=== PATIENT | female | born 1955 | race Two or more races ===

== ENCOUNTER 2017-05-08 20:39 | Inpatient (IN) | payer SELFPAY ==
[~2017-05-08] VITALS: Ht 43.2 cm; Wt 48.5 kg
[~2017-05-08 20:39] MED LIST: CIPRO500 MG PO; NKM; NORCO 5-325 TA1 EACH ORAL; PHENAZOPYRIDIN100 MG PO
--- NOTE | 2017-05-08 20:47 | Emergency Room Report ---
History of Present Illness General Chief Complaint: Vomiting Source: Patient Present Illness HPI Patient is a 61-year-old female who presented after increased of vomiting as well as bilateral hand numbness. Patient had prior history of a gallbladder disease. Patient had previous cholecystectomy. Patient stated that she really becomes constipated and used an enema. Patient reported having some increased abdominal pain as well as vomiting times one. There is no evidence of hematemesis. Patient denied any recent fever. She denies severe pain.The patient stated that her hands a become somewhat numb bilaterally. She reported having some generalized weakness. Allergies: Coded Allergies: No Known Allergies (Unverified , 07/13/12) Patient History Past Medical History: none Past Surgical History: deepti Last Menstrual Period: 2004 Now: No : 2 Para: 2 Reviewed Nursing Documentation: PMH: Agreed, PSxH: Agreed Nursing Documentation-PMH Past Medical History: No Stated History Review of Systems All Other Systems: negative except mentioned in HPI Physical Exam Vital Signs Date Time Temp Pulse Resp B/P Pulse Ox O2 Delivery O2 Flow Rate FiO2 05/08/17 20:33 98.4 94 16 159/79 100 Room Air Sp02 EP Interpretation: reviewed, normal General Appearance: normal inspection, alert, GCS 15, mild distress Head: atraumatic ENT: normal ENT inspection, hearing grossly normal, normal voice Neck: normal inspection, full range of motion, supple, no bony tend Respiratory: normal inspection, lungs clear, normal breath sounds, no respiratory distress, no retraction, no wheezing Cardiovascular #1: regular rate, rhythm, no edema Gastrointestinal: normal inspection, normal bowel sounds, non tender, soft, no guarding, no hernia Genitourinary: no CVA tenderness Musculoskeletal: normal inspection, back normal, normal range of motion Neurologic: normal inspection, alert, oriented x3, responsive, nps III-XII nml as tested, speech normal Psychiatric: normal inspection, judgement/insight normal, mood/affect normal Skin: normal inspection, normal color, no rash Medical Decision Making Diagnostic Impression: Primary Impression: Vomiting Additional Impressions: Hyponatremia Dehydration ER Course Patient presented for abdominal pain. Differential diagnoses included ischemic bowel, appendicitis, perforated viscus, abdominal aortic aneurysm, inferior myocardial infarction, viral gastroenteritis. Because of complexity of patient' s case laboratory testing and imaging studies were ordered.Laboratory testing showed hyponatremia with sodium 124. Patient was given IV fluids with normal saline. A TSH was normal urine sodium is currently pending. The patient's BUN creatinine was normal. Dr. Herrera was contacted for Dr. Forman for panel admission due to severe hyponatremia. EKG interpreted by me showed normal sinus rhythm and nonspecific T wave changes with a rate of 64 EKG Diagnostic Results Rate: normal Rhythm: NSR - 64 ST Segments: no acute changes ASA given to the pt in ED: No Rhythm Strip Diag. Results EP Interpretation: yes Rhythm: NSR, no PVC's, no ectopy Last Vital Signs Date Time Temp Pulse Resp B/P Pulse Ox O2 Delivery O2 Flow Rate FiO2 05/08/17 20:33 98.4 94 16 159/79 100 Room Air Status: unchanged Disposition: ADMITTED INPATIENT Condition: Serious Wing Cooper May 08, 2017 20:47
[2017-05-08 21:43] LABS: EOSINOPHILS % (AUTO) 0.6 % (0.0-3.0); LYMPHOCYTES % (AUTO) 44.3 % (20.0-45.0); MEAN CORPUSCULAR HEMOGLOBIN 33.6 PG (27.0-31.0); MEAN CORPUSCULAR HGB CONC 36.8 G/DL (32.0-36.0); MEAN CORPUSCULAR VOLUME 91 FL (80-99); MEAN PLATELET VOLUME 7.3 FL (6.5-10.1); MONOCYTES % (AUTO) 9.1 % (1.0-10.0); PLATELET COUNT 239 K/UL (150-450); RED BLOOD COUNT 3.62 M/UL (4.20-5.40); RED CELL DISTRIBUTION WIDTH 10.1 % (11.6-14.8); WHITE BLOOD COUNT 6.6 K/UL (4.8-10.8)
[2017-05-08 21:53] VITALS: BP 129/63
[2017-05-08 22:08] LABS: TROPONIN I < 0.30 ng/mL (<=0.30)
[2017-05-08 22:11] LABS: ALANINE AMINOTRANSFERASE 10 U/L (3-33); ALBUMIN/GLOBULIN RATIO 1.2 (1.0-2.7); ANION GAP 15 (5-15); ASPARTATE AMINO TRANSFERASE 21 U/L (5-40); CALCIUM 9.4 mg/dL (8.6-10.2); CARBON DIOXIDE 25 mEQ/L (20-30); CHLORIDE 84 mEQ/L (98-107); CREATININE 0.7 mg/dL (0.5-0.9); GLOMERULAR FILTRATION RATE > 60 mL/min (>60); HEMOLYSIS 6; LIPASE 25 U/L (< 60); POTASSIUM 3.5 mEQ/L (3.4-4.9); SODIUM 124 mEQ/L (135-145); TOTAL PROTEIN 7.6 g/dL (6.6-8.7)
[2017-05-08 22:18] LABS: APPEARANCE,URINE CLEAR; KETONES,URINE NEGATIVE (NEGATIVE); LEUKOCYTE ESTERASE ,URINE NEGATIVE (NEGATIVE); NITRITE,URINE NEGATIVE (NEGATIVE); PH,URINE 7 (4.5-8.0); PROTEIN,URINE NEGATIVE (NEGATIVE); UROBILINOGEN,URINE NORMAL MG/DL (0.0-1.0)
[2017-05-08] MEDS ORDERED: NKM (22:39)
[2017-05-09] VITALS (7 sets, daily range): BP systolic 95–127; BP diastolic 51–67
[2017-05-09] MEDS ORDERED: Zolpidem 5mg tab ORAL PRN (02:30)
[2017-05-09] MEDS ORDERED: Miralax 17gm pkt ORAL PRN (02:30)
[2017-05-09] MEDS ORDERED: Morphine Sulfate 4mg/ml Inj IVP PRN (02:30)
[2017-05-09] MEDS ORDERED: Milk of Magnesia 30ml Ud ORAL PRN (02:30)
[2017-05-09] MEDS ORDERED: Morphine Sulfate 2mg/ml Inj IVP PRN (02:30)
[2017-05-09] MEDS ORDERED: Mylanta II UD 30ml ORAL PRN (02:30)
[2017-05-09] MEDS ORDERED: Nitroglycerin Subl 0.4mg tab (Bottle Of 25) SL PRN (02:30)
--- NOTE | 2017-05-09 07:50 | History and Physical ---
History of Present Illness General Date patient seen: May 09, 2017 Time patient seen: 07:50 Reason for Hospitalization: Abd pain, nausea/vomiting Present Illness HPI 61-year-old female who presented after increased of vomiting as well as bilateral hand numbness. Patient had prior history of a gallbladder disease. Patient had previous cholecystectomy. Patient stated that she really becomes constipated and used an enema. Patient reported having some increased abdominal pain as well as vomiting times one. There is no evidence of hematemesis. Patient denied any recent fever. She denies severe pain.The patient stated that her hands a become somewhat numb bilaterally. She reported having some generalized weakness Allergies: Coded Allergies: No Known Allergies (Unverified , 07/13/12) Medication History Scheduled No Known Medications* (NKM - No Known Medications*), 0 ., (Reported) No Known Medications* (NKM - No Known Medications*), 0 ., (Reported) Patient History Healthcare decision maker Resuscitation status Full Code Advanced Directive on File No Past Medical/Surgical History Past Medical/Surgical History: (1) S/P cholecystectomy Family History Family History: Patient reports no known family medical history. Social History Social History: (1) Lives with family Review of Systems Constitutional: Reports: no symptoms Eye: Reports: no symptoms ENT: Reports: no symptoms Respiratory: Reports: no symptoms Cardiovascular: Reports: no symptoms Gastrointestinal: Reports: abdominal pain, diarrhea, nausea, vomiting Genitourinary: Reports: no symptoms Musculoskeletal: Reports: no symptoms Skin: Reports: no symptoms Psychiatric: Reports: no symptoms Neurological: Reports: numbness Endocrine: Reports: no symptoms Hematologic/Lymphatic: Reports: no symptoms All Other Systems: negative except mentioned in HPI Physical Exam Physical Exam Narrative General: alert, cooperative, no distress, appears stated age Head: normocephalic, without obvious abnormality, atraumatic Eyes: conjunctivae/corneas clear. PERRL, EOM's intact Throat: lips, mucosa, and tongue normal. MMM Neck: supple, symmetrical, trachea midline, and no JVD Lungs: clear to auscultation bilaterally Heart: regular rate and rhythm, S1, S2 normal, no murmur, click, rub or gallop Abdomen: soft, non-tender, non-distended, bowel sounds normal; no masses or organomegaly Extremities: extremities normal, atraumatic, no cyanosis or edema Pulses: 2+ and symmetric Skin: skin color, texture, turgor normal; no rashes or lesions Neurologic: grossly normal, no focal deficits Last 24 Hour Vital Signs Date Time Temp Pulse Resp B/P Pulse Ox O2 Delivery O2 Flow Rate FiO2 05/09/17 05:34 98.9 05/09/17 04:00 48 05/09/17 04:00 97.0 64 20 100/60 100 Room Air 05/09/17 00:52 53 16 99/48 98 Room Air 05/09/17 00:26 98.9 57 16 104/51 98 Room Air 05/09/17 00:00 97.0 55 20 127/67 90 Room Air 05/09/17 00:00 97.0 55 20 90 Room Air 05/08/17 21:53 58 17 129/63 99 Room Air 05/08/17 20:33 98.4 94 16 159/79 100 Room Air Intake and Output 05/08/17 05/09/17 18:59 06:59 Intake Total 250 ml Output Total 100 ml Balance 150 ml Intake IV Total 250 ml Output Emesis 100 ml # Voids 3 Laboratory Tests Test 05/08/17 21:20 05/08/17 22:10 White Blood Count 6.6 K/UL (4.8-10.8) Red Blood Count 3.62 M/UL (4.20-5.40) L Hemoglobin 12.2 G/DL (12.0-16.0) Hematocrit 33.1 % (37.0-47.0) L Mean Corpuscular Volume 91 FL (80-99) Mean Corpuscular Hemoglobin 33.6 PG (27.0-31.0) H Mean Corpuscular Hemoglobin Concent 36.8 G/DL (32.0-36.0) H Red Cell Distribution Width 10.1 % (11.6-14.8) L Platelet Count 239 K/UL (150-450) Mean Platelet Volume 7.3 FL (6.5-10.1) Neutrophils (%) (Auto) 45.0 % (45.0-75.0) Lymphocytes (%) (Auto) 44.3 % (20.0-45.0) Monocytes (%) (Auto) 9.1 % (1.0-10.0) Eosinophils (%) (Auto) 0.6 % (0.0-3.0) Basophils (%) (Auto) 1.0 % (0.0-2.0) Sodium Level 124 mEQ/L (135-145) L Potassium Level 3.5 mEQ/L (3.4-4.9) Chloride Level 84 mEQ/L (98-107) L Carbon Dioxide Level 25 mEQ/L (20-30) Anion Gap 15 (5-15) Blood Urea Nitrogen 7 mg/dL (7-23) Creatinine 0.7 mg/dL (0.5-0.9) Estimat Glomerular Filtration Rate > 60 mL/min (>60) Glucose Level 101 mg/dL (74-106) Calcium Level 9.4 mg/dL (8.6-10.2) Total Bilirubin 0.8 mg/dL (0.0-1.2) Aspartate Amino Transf (AST/SGOT) 21 U/L (5-40) Alanine Aminotransferase (ALT/SGPT) 10 U/L (3-33) Alkaline Phosphatase 71 U/L (35-104) Troponin I < 0.30 ng/mL (<=0.30) Total Protein 7.6 g/dL (6.6-8.7) Albumin 4.2 g/dL (3.5-5.2) Globulin 3.4 g/dL Albumin/Globulin Ratio 1.2 (1.0-2.7) Lipase 25 U/L (< 60) Urine Color Pale yellow Urine Appearance Clear Urine pH 7 (4.5-8.0) Urine Specific [place] 1.005 (1.005-1.035) Urine Protein Negative (NEGATIVE) Urine Glucose (UA) Negative (NEGATIVE) Urine Ketones Negative (NEGATIVE) Urine Occult Blood Negative (NEGATIVE) Urine Nitrite Negative (NEGATIVE) Urine Bilirubin Negative (NEGATIVE) Urine Urobilinogen Normal MG/DL (0.0-1.0) Urine Leukocyte Esterase Negative (NEGATIVE) Urine Random Sodium 34 mmol/L Thyroid Stimulating Hormone (TSH) 3.110 uIU/mL (0.300-4.500) Height (Feet): 1 Height (Inches): 5.00 Weight (Pounds): 107 Medications Current Medications Medications (Trade) Dose Ordered Sig/Estrella Route PRN Reason Start Time Stop Time Status Last Admin Dose Admin Acetaminophen (Tylenol) 650 mg Q4H PRN ORAL Mild Pain (Pain Scale 1-3) 05/09/17 02:30 9/2/17 02:29 Al Hydroxide/Mg Hydroxide (Mylanta II) 30 ml Q6H PRN ORAL dyspepsia 05/09/17 02:30 06/08/17 02:29 Bisacodyl (Dulcolax) 10 mg HSPRN PRN RECTAL Constipation 05/09/17 02:30 06/08/17 02:29 Dextrose STAT PRN IV Hypoglycemia 05/09/17 02:30 06/08/17 02:29 Diphenhydramine HCl (Benadryl) 25 mg Q6H PRN ORAL Itching/Pruritis 05/09/17 02:30 06/08/17 02:29 Docusate Sodium (Colace) 100 mg EVERY 12 HOURS ORAL 05/09/17 09:00 06/08/17 08:59 Heparin Sodium (Porcine) (Heparin 5000 units/ml) 5,000 units EVERY 8 HOURS SUBQ 05/09/17 06:00 06/08/17 05:59 Magnesium Hydroxide (Mom) 30 ml HSPRN PRN ORAL Constipation 05/09/17 02:30 06/08/17 02:29 Morphine Sulfate (Morphine Sulfate) 2 mg Q4H PRN IVP Moderate Pain (Pain Scale 4-6) 05/09/17 02:30 05/16/17 02:29 Morphine Sulfate (Morphine Sulfate) 4 mg Q4H PRN IVP Severe Pain (Pain Scale 7-10) 05/09/17 02:30 05/16/17 02:29 Nitroglycerin (Ntg) 0.4 mg Q5M X 3 DOSES PRN SL Prn Chest Pain 05/09/17 02:30 06/08/17 02:29 Ondansetron HCl (Zofran) 4 mg Q6H PRN IVP Nausea & Vomiting 05/09/17 02:30 06/08/17 02:29 Polyethylene Glycol (Miralax) 17 gm HSPRN PRN ORAL Constipation 05/09/17 02:30 06/08/17 02:29 Sodium Chloride (Sodium Chloride 1000ml bag) 1,000 ml @ 75 mls/hr [id number] IV 05/09/17 03:00 06/08/17 02:59 05/09/17 03:12 Zolpidem Tartrate (Ambien) 5 mg HSPRN PRN ORAL Insomnia 05/09/17 02:30 06/08/17 02:29 Assessment/Plan Problem List: (1) Abdominal pain ICD Codes: R10.9 - Unspecified abdominal pain SNOMED: 84283941 (2) Vomiting ICD Codes: R11.10 - Vomiting, unspecified SNOMED: 581866021 (3) Dehydration ICD Codes: E86.0 - Dehydration SNOMED: 51123574 (4) Hyponatremia ICD Codes: E87.1 - Hypo-osmolality and hyponatremia SNOMED: 17787322 (5) Paresthesia ICD Codes: R20.2 - Paresthesia of skin SNOMED: 02702374 Status: stable Assessment/Plan Admit inpt GI consulted IVFs w/ NS at 75mL/h given hyponatremia Replete lytes Consider further imaging per GI Regular diet as tolerate Nausea control Pain control Supportive care Jonathan Hedrick M.D. May 09, 2017 07:50
[2017-05-09] MEDS: Heparin 5000 units/ml inj SUBQ SCH ×4 (08:33→21:22)
[2017-05-09 08:52] LABS: BASOPHILS % (AUTO) 0.8 % (0.0-2.0); EOSINOPHILS % (AUTO) 0.6 % (0.0-3.0); LYMPHOCYTES % (AUTO) 42.8 % (20.0-45.0); MEAN CORPUSCULAR HGB CONC 34.8 G/DL (32.0-36.0); MEAN CORPUSCULAR VOLUME 95 FL (80-99); MEAN PLATELET VOLUME 7.6 FL (6.5-10.1); MONOCYTES % (AUTO) 8.7 % (1.0-10.0); NEUTROPHILS % (AUTO) 47.1 % (45.0-75.0); PLATELET COUNT 278 K/UL (150-450); RED BLOOD COUNT 3.93 M/UL (4.20-5.40); RED CELL DISTRIBUTION WIDTH 10.1 % (11.6-14.8); WHITE BLOOD COUNT 6.8 K/UL (4.8-10.8)
[2017-05-09 09:07] LABS: ANION GAP 11 (5-15); CALCIUM 9.2 mg/dL (8.6-10.2); CARBON DIOXIDE 25 mEQ/L (20-30); CHLORIDE 95 mEQ/L (98-107); CHOLESTEROL 156 mg/dL (< 200); CHOLESTEROL/HDL RATIO 2.3 (3.3-4.4); CREATININE 0.8 mg/dL (0.5-0.9); GLOMERULAR FILTRATION RATE > 60 mL/min (>60); HEMOLYSIS 5; LDL CHOLESTEROL (CALC.) 77 mg/dL (60-99); POTASSIUM 4.2 mEQ/L (3.4-4.9); SODIUM 131 mEQ/L (135-145)
[2017-05-09] MEDS: Docusate 100mg cap ORAL SCH ×3 (10:32→21:12)
[2017-05-09] MEDS: Pantoprazole Inj IVP SCH (10:33)
--- NOTE | 2017-05-09 13:06 | GI Initial Consult Note ---
History of Present Illness General Date patient seen: May 09, 2017 Time patient seen: 10:00 Reason for Hospitalization: Vomiting Referring physician: CARLTON Reason for Consultation: EMESIS Present Illness HPI Patient is a 61-year-old female who presented after increased of vomiting as well as bilateral hand numbness. Patient had prior history of a gallbladder disease. Patient had previous cholecystectomy. Patient stated that she really becomes constipated and used an enema. Patient reported having some increased abdominal pain as well as vomiting times one. There is no evidence of hematemesis. Patient denied any recent fever. She denies severe pain.The patient stated that her hands a become somewhat numb bilaterally. She reported having some generalized weakness. GI Consult. HPI as noted above. GI consulted for emesis and constipation. Pt seen on floor a&Ox4 NAD with no active s/sx of N/V/D. According to patient, she had a random episode of emesis last night. This is the second occurrence she's had random emesis like this. Denies any hematemesis or coffee grounds. The patient also c/o of bilateral numbness to the hands and legs, but states she feels normal at the moment. She presents today with hyponatremia. CBC unremarkable. She has no history of any endoscopic procedures. Home Meds Reported Medications No Known Medications* (NKM - No Known Medications*) ., 0 ., 0 Refills 05/08/17 No Known Medications* (NKM - No Known Medications*) ., 0 ., 0 Refills 05/27/13 Med list reviewed/reconciled: Yes Allergies: Coded Allergies: No Known Allergies (Unverified , 07/13/12) Patient History Limited by: medical condition History Provided By: Patient Past Medical History: none PMH Narrative Past Medical History: none Past Surgical History: deeptimireya Last Menstrual Period: 2004 Now: No : 2 Para: 2 Reviewed Nursing Documentation: PMH: Agreed, PSxH: Agreed Social History: Denies: alcohol use, drug use, other, smoking Review of Systems All Other Systems: negative except mentioned in HPI Physical Exam Vital Signs Date Time Temp Pulse Resp B/P Pulse Ox O2 Delivery O2 Flow Rate FiO2 05/08/17 20:33 98.4 94 16 159/79 100 Room Air Sp02 EP Interpretation: reviewed Labs Laboratory Tests Test 05/08/17 21:20 05/08/17 22:10 05/09/17 08:10 White Blood Count 6.6 K/UL (4.8-10.8) 6.8 K/UL (4.8-10.8) Red Blood Count 3.62 M/UL (4.20-5.40) L 3.93 M/UL (4.20-5.40) L Hemoglobin 12.2 G/DL (12.0-16.0) 12.9 G/DL (12.0-16.0) Hematocrit 33.1 % (37.0-47.0) L 37.1 % (37.0-47.0) Mean Corpuscular Volume 91 FL (80-99) 95 FL (80-99) Mean Corpuscular Hemoglobin 33.6 PG (27.0-31.0) H 33.0 PG (27.0-31.0) H Mean Corpuscular Hemoglobin Concent 36.8 G/DL (32.0-36.0) H 34.8 G/DL (32.0-36.0) Red Cell Distribution Width 10.1 % (11.6-14.8) L 10.1 % (11.6-14.8) L Platelet Count 239 K/UL (150-450) 278 K/UL (150-450) Mean Platelet Volume 7.3 FL (6.5-10.1) 7.6 FL (6.5-10.1) Neutrophils (%) (Auto) 45.0 % (45.0-75.0) 47.1 % (45.0-75.0) Lymphocytes (%) (Auto) 44.3 % (20.0-45.0) 42.8 % (20.0-45.0) Monocytes (%) (Auto) 9.1 % (1.0-10.0) 8.7 % (1.0-10.0) Eosinophils (%) (Auto) 0.6 % (0.0-3.0) 0.6 % (0.0-3.0) Basophils (%) (Auto) 1.0 % (0.0-2.0) 0.8 % (0.0-2.0) Sodium Level 124 mEQ/L (135-145) L 131 mEQ/L (135-145) L Potassium Level 3.5 mEQ/L (3.4-4.9) 4.2 mEQ/L (3.4-4.9) Chloride Level 84 mEQ/L (98-107) L 95 mEQ/L (98-107) L Carbon Dioxide Level 25 mEQ/L (20-30) 25 mEQ/L (20-30) Anion Gap 15 (5-15) 11 (5-15) Blood Urea Nitrogen 7 mg/dL (7-23) 6 mg/dL (7-23) L Creatinine 0.7 mg/dL (0.5-0.9) 0.8 mg/dL (0.5-0.9) Estimat Glomerular Filtration Rate > 60 mL/min (>60) > 60 mL/min (>60) Glucose Level 101 mg/dL (74-106) 93 mg/dL (74-106) Calcium Level 9.4 mg/dL (8.6-10.2) 9.2 mg/dL (8.6-10.2) Total Bilirubin 0.8 mg/dL (0.0-1.2) Aspartate Amino Transf (AST/SGOT) 21 U/L (5-40) Alanine Aminotransferase (ALT/SGPT) 10 U/L (3-33) Alkaline Phosphatase 71 U/L (35-104) Troponin I < 0.30 ng/mL (<=0.30) Total Protein 7.6 g/dL (6.6-8.7) Albumin 4.2 g/dL (3.5-5.2) Globulin 3.4 g/dL Albumin/Globulin Ratio 1.2 (1.0-2.7) Lipase 25 U/L (< 60) Urine Color Pale yellow Urine Appearance Clear Urine pH 7 (4.5-8.0) Urine Specific [place] 1.005 (1.005-1.035) Urine Protein Negative (NEGATIVE) Urine Glucose (UA) Negative (NEGATIVE) Urine Ketones Negative (NEGATIVE) Urine Occult Blood Negative (NEGATIVE) Urine Nitrite Negative (NEGATIVE) Urine Bilirubin Negative (NEGATIVE) Urine Urobilinogen Normal MG/DL (0.0-1.0) Urine Leukocyte Esterase Negative (NEGATIVE) Urine Random Sodium 34 mmol/L Thyroid Stimulating Hormone (TSH) 3.110 uIU/mL (0.300-4.500) Hemoglobin A1c 5.0 % (< 6.0) Triglycerides Level 60 mg/dL (< 150) Cholesterol Level 156 mg/dL (< 200) LDL Cholesterol 77 mg/dL (60-99) HDL Cholesterol 67 mg/dL (> 60) H Cholesterol/HDL Ratio 2.3 (3.3-4.4) L Vitamin B12 Level 699 pg/mL (211-946) Vitamin D 25-Hydroxy Pending 25-Hydroxy Vitamin D2 Pending 25-Hydroxy Vitamin D3 Pending Folate Pending General Appearance: well appearing, no apparent distress, alert Head: normocephalic EENT: PERRL/EOMI, normal ENT inspection Neck: supple Respiratory: normal breath sounds, no respiratory distress Cardiovascular: normal rate Gastrointestinal: normal inspection, non tender, soft Rectal: normal exam Genitourinary: no CVA tenderness Musculoskeletal: normal inspection, back normal Neurologic: normal inspection, alert, oriented x3, responsive Psychiatric: normal inspection, judgement/insight normal, memory normal Skin: normal inspection, normal color, no rash Lymphatic: normal inspection, no adenopathy Current Medications Current Medications Medications (Trade) Dose Ordered Sig/Estrella Route PRN Reason Start Time Stop Time Status Last Admin Dose Admin Acetaminophen (Tylenol) 650 mg Q4H PRN ORAL Mild Pain (Pain Scale 1-3) 05/09/17 02:30 06/08/17 02:29 Al Hydroxide/Mg Hydroxide (Mylanta II) 30 ml Q6H PRN ORAL dyspepsia 05/09/17 02:30 06/08/17 02:29 Bisacodyl (Dulcolax) 10 mg HSPRN PRN RECTAL Constipation 05/09/17 02:30 06/08/17 02:29 Dextrose STAT PRN IV Hypoglycemia 05/09/17 02:30 06/08/17 02:29 Diphenhydramine HCl (Benadryl) 25 mg Q6H PRN ORAL Itching/Pruritis 05/09/17 02:30 06/08/17 02:29 Docusate Sodium (Colace) 100 mg EVERY 12 HOURS ORAL 05/09/17 09:00 06/08/17 08:59 05/09/17 10:32 Heparin Sodium (Porcine) (Heparin 5000 units/ml) 5,000 units EVERY 8 HOURS SUBQ 05/09/17 06:00 06/08/17 05:59 05/09/17 08:33 Magnesium Hydroxide (Mom) 30 ml HSPRN PRN ORAL Constipation 05/09/17 02:30 06/08/17 02:29 Morphine Sulfate (Morphine Sulfate) 2 mg Q4H PRN IVP Moderate Pain (Pain Scale 4-6) 05/09/17 02:30 05/16/17 02:29 Morphine Sulfate (Morphine Sulfate) 4 mg Q4H PRN IVP Severe Pain (Pain Scale 7-10) 05/09/17 02:30 05/16/17 02:29 Nitroglycerin (Ntg) 0.4 mg Q5M X 3 DOSES PRN SL Prn Chest Pain 05/09/17 02:30 06/08/17 02:29 Ondansetron HCl (Zofran) 4 mg Q6H PRN IVP Nausea & Vomiting 05/09/17 02:30 06/08/17 02:29 Pantoprazole (Protonix) 40 mg DAILY IVP 05/09/17 09:30 06/08/17 09:29 05/09/17 10:33 Polyethylene Glycol (Miralax) 17 gm HSPRN PRN ORAL Constipation 05/09/17 02:30 06/08/17 02:29 Sodium Chloride (Sodium Chloride 1000ml bag) 1,000 ml @ 75 mls/hr [id number] 05/09/17 03:00 06/08/17 02:59 05/09/17 03:12 Zolpidem Tartrate (Ambien) 5 mg HSPRN PRN ORAL Insomnia 05/09/17 02:30 06/08/17 02:29 GI: Plan Problems: (1) Paresthesia (2) Abdominal pain (3) Hyponatremia (4) Vomiting (5) Dehydration Plan symptomatic treatment at this time zofran prn IV hydration + electrolyte correction adv diet, stable H&H bowel regime >> colace + ATC fu labs recommend for outpatient colonoscopy screening Discussed with Dr. Wagner. Thank you for referring this patient, we will follow. Lyssa Cuevas N.P. May 09, 2017 13:06
[2017-05-09] MEDS: Miralax 17gm pkt ORAL SCH ×2 (21:00→21:13)
[2017-05-10] VITALS: BP 108/62
[2017-05-10 03:45] VITALS: BP 101/62
[2017-05-10] MEDS: Heparin 5000 units/ml inj SUBQ SCH ×2 (05:48→14:00)
[2017-05-10 06:38] LABS: MEAN CORPUSCULAR HEMOGLOBIN 32.8 PG (27.0-31.0); MEAN CORPUSCULAR HGB CONC 34.4 G/DL (32.0-36.0); MEAN CORPUSCULAR VOLUME 95 FL (80-99); MEAN PLATELET VOLUME 7.5 FL (6.5-10.1); PLATELET COUNT 264 K/UL (150-450); RED BLOOD COUNT 3.68 M/UL (4.20-5.40); RED CELL DISTRIBUTION WIDTH 10.6 % (11.6-14.8)
[2017-05-10 07:04] LABS: ANION GAP 9 (5-15); CALCIUM 9.3 mg/dL (8.6-10.2); CARBON DIOXIDE 28 mEQ/L (20-30); CHLORIDE 104 mEQ/L (98-107); CREATININE 0.8 mg/dL (0.5-0.9); GLOMERULAR FILTRATION RATE > 60 mL/min (>60); HEMOLYSIS 5; MAGNESIUM 1.8 mg/dL (1.7-2.5); PHOSPHORUS 3.2 mg/dL (2.5-4.8); POTASSIUM 4.3 mEQ/L (3.4-4.9); SODIUM 141 mEQ/L (135-145)
[2017-05-10 07:50] VITALS: BP 88/48
[2017-05-10 07:58] LABS: BAND NEUTROPHILS % (MANUAL) 0 % (0-8); BASOPHILS % (MANUAL) 0 % (0-2); EOSINOPHILS % (MANUAL) 0 % (0-3); LYMPHOCYTES % (MANUAL) 59 % (20-45); NEUTROPHILS % (MANUAL) 37 % (45-75); PLATELET ESTIMATE ADEQUATE; TOTAL CELLS COUNTED 100
[2017-05-10 07:59] LABS: PLATELET MORPHOLOGY NORMAL
[2017-05-10] MEDS ORDERED: Simethicone 80mg tab ORAL PRN (09:15)
--- NOTE | 2017-05-10 09:53 | GI Progress Note ---
Assessment/Plan Problems: (1) Abdominal pain ICD Codes: R10.9 - Unspecified abdominal pain SNOMED: 43537002 (2) Hyponatremia ICD Codes: E87.1 - Hypo-osmolality and hyponatremia SNOMED: 23130967 (3) Vomiting ICD Codes: R11.10 - Vomiting, unspecified SNOMED: 522901208 (4) Hyponatremia ICD Codes: E87.1 - Hypo-osmolality and hyponatremia SNOMED: 13107004 (5) Dehydration ICD Codes: E86.0 - Dehydration SNOMED: 67478256 (6) S/P cholecystectomy ICD Codes: Z90.49 - Acquired absence of other specified parts of digestive tract SNOMED: 20289261, 373023599 (7) Lives with family SNOMED: 480376992 Status: stable Status Narrative Discussed with Dr. Wagner. Assessment/Plan ok for DC per GI standpoint symptomatic treatment at this time dietary consult >> Ensure clear for lunch push PO zofran prn simethicone prn IV hydration electrolyte correction stable H&H bowel regime fu labs recommend for outpatient colonoscopy screening rx for simethicone / Zantac given to RN Subjective Subjective gas pain Objective Last 24 Hour Vital Signs Date Time Temp Pulse Resp B/P Pulse Ox O2 Delivery O2 Flow Rate FiO2 05/10/17 07:50 97.5 47 18 88/48 98 Room Air 05/10/17 04:00 47 05/10/17 03:45 97.7 60 21 101/62 98 Room Air 05/10/17 00:00 52 05/10/17 00:00 97.9 65 21 108/62 96 Room Air 05/09/17 20:00 97.7 69 20 95/55 98 Room Air 15.0 05/09/17 20:00 58 05/09/17 16:04 97.0 48 18 97/63 99 Room Air 05/09/17 16:00 46 05/09/17 12:00 97.5 62 18 103/56 97 Room Air 05/09/17 12:00 56 Intake and Output 05/09/17 05/10/17 19:00 07:00 Intake Total 1185 ml 925 ml Balance 1185 ml 925 ml Intake Oral 360 ml IV Total 825 ml 925 ml # Voids 3 Laboratory Tests Test 05/10/17 05:45 White Blood Count 7.0 K/UL (4.8-10.8) Red Blood Count 3.68 M/UL (4.20-5.40) L Hemoglobin 12.1 G/DL (12.0-16.0) Hematocrit 35.2 % (37.0-47.0) L Mean Corpuscular Volume 95 FL (80-99) Mean Corpuscular Hemoglobin 32.8 PG (27.0-31.0) H Mean Corpuscular Hemoglobin Concent 34.4 G/DL (32.0-36.0) Red Cell Distribution Width 10.6 % (11.6-14.8) L Platelet Count 264 K/UL (150-450) Mean Platelet Volume 7.5 FL (6.5-10.1) Neutrophils (%) (Auto) % (45.0-75.0) Lymphocytes (%) (Auto) % (20.0-45.0) Monocytes (%) (Auto) % (1.0-10.0) Eosinophils (%) (Auto) % (0.0-3.0) Basophils (%) (Auto) % (0.0-2.0) Differential Total Cells Counted 100 Neutrophils % (Manual) 37 % (45-75) L Lymphocytes % (Manual) 59 % (20-45) H Monocytes % (Manual) 4 % (1-10) Eosinophils % (Manual) 0 % (0-3) Basophils % (Manual) 0 % (0-2) Band Neutrophils 0 % (0-8) Platelet Estimate Adequate Platelet Morphology Normal Red Blood Cell Morphology Normal Sodium Level 141 mEQ/L (135-145) # Potassium Level 4.3 mEQ/L (3.4-4.9) Chloride Level 104 mEQ/L (98-107) Carbon Dioxide Level 28 mEQ/L (20-30) Anion Gap 9 (5-15) Blood Urea Nitrogen 7 mg/dL (7-23) Creatinine 0.8 mg/dL (0.5-0.9) Estimat Glomerular Filtration Rate > 60 mL/min (>60) Glucose Level 93 mg/dL (74-106) Calcium Level 9.3 mg/dL (8.6-10.2) Phosphorus Level 3.2 mg/dL (2.5-4.8) Magnesium Level 1.8 mg/dL (1.7-2.5) Height (Feet): 1 Height (Inches): 5.00 Weight (Pounds): 107 General Appearance: no apparent distress, alert Cardiovascular: normal rate Respiratory/Chest: normal breath sounds, no respiratory distress Abdominal Exam: normal bowel sounds, non tender, soft, tender - epigastric Extremities: normal range of motion Lyssa Cuevas N.P. May 10, 2017 09:53
[2017-05-10] MEDS: Pantoprazole Inj IVP SCH ×2 (09:59→10:04)
[2017-05-10] MEDS: Docusate 100mg cap ORAL SCH (09:59)
[2017-05-10] MEDS ORDERED: RANITIDINE HCL150 MG ORAL (10:41)
[2017-05-10] MEDS ORDERED: SIMETHICONE80 MG ORAL (10:41)
[2017-05-10 11:39] VITALS: BP 103/58
[2017-05-12 11:08] LABS: VITAMIN D 25-OH TOTAL 21 ng/mL (.)
--- NOTE | 2017-05-14 17:22 | Discharge Summary ---
Discharge Summary Hospital Course Date of Admission May 08, 2017 at 23:23 Date of Discharge May 10, 2017 at 15:10 Admitting Diagnosis abdominal pain, hyponatremia Reason for Hospitalization: abd pain, n/v, hyponatremia HPI 61-year-old female who presented after increased of vomiting as well as bilateral hand numbness. Patient had prior history of a gallbladder disease. Patient had previous cholecystectomy. Patient stated that she really becomes constipated and used an enema. Patient reported having some increased abdominal pain as well as vomiting times one. There is no evidence of hematemesis. Patient denied any recent fever. She denies severe pain.The patient stated that her hands a become somewhat numb bilaterally. She reported having some generalized weakness Consultations Gastroenterology Hospital Course Pt was admitted and placed on IVFs. Na improved with hydration. Pt was seen by GI and improved w/ trial of zantac, PPI and simethicone. Pt was tolerating PO on d/c and pain controlled. Discharge Medications New Medications: Ranitidine Hcl* (Zantac*) 150 Mg Tablet 150 MG ORAL TWICE A DAY for 14 Days, #30 TAB Simethicone* (Simethicone*) 80 Mg Tab.chew 80 MG ORAL QIDPRN PRN for 30 Days, TAB Continued Medications: No Known Medications* (NKM - No Known Medications*) . 0 ., 0 Refills No Known Medications* (NKM - No Known Medications*) . 0 ., 0 Refills Discharge Condition Upon Discharge: stable Discharge Disposition Patient was discharged to Home (01) Discharge Diagnoses: (1) Hyponatremia (2) Abdominal pain (3) Paresthesia Jonathan Hedrick M.D. May 14, 2017 17:22
== END 2017-05-10 15:10 | disposition home or self-care (01) | DRG 641 ==
LOC: EDBD 20:39 → EMR 20:50 → 2E 23:23 → EDBEDREQ 05-09 00:19
DX: E87.1 Hypo-osmolality and hyponatremia (principal); E86.0 Dehydration; R10.9 Unspecified abdominal pain; R20.8 Other disturbances of skin sensation
CPT/HCPCS: 36415; 80048; 80053; 80061; 81003; 82306; 82607; 82746; 83036; 83690; 83735; 84100; 84300; 84443; 84484; 85007; 85025; 93005; J2405